=== PATIENT | female | born 2000 | race Hispanic/Latino ===

== ENCOUNTER 2022-07-20 10:26 | Day surgery (SDC) | payer OTHER ==
[2022-07-18 14:52] VITALS: BMI 19.8
[2022-07-20] MEDS ORDERED: Lidocaine 1% PF 5 ML VIAL ONE (11:33)
[2022-07-20] MEDS ORDERED: PROPOFOL 60 ML ONE (11:42)
== END 2022-07-20 13:20 | disposition home or self-care (01) ==
LOC: CSHSDC 10:26
PROVIDERS: ATTEND Internal Medicine Gastroenterology
PROC: 0DBN8ZX Excision of Sigmoid Colon, Via Natural or Artificial Opening Endoscopic, Diagnostic (ICD-10-PCS; principal; 2022-07-20)
PROC: 0DBP8ZX Excision of Rectum, Via Natural or Artificial Opening Endoscopic, Diagnostic (ICD-10-PCS; principal; 2022-07-20)
DX: K51.311 Ulcerative (chronic) rectosigmoiditis with rectal bleeding (principal); K64.9 Unspecified hemorrhoids
CPT/HCPCS: 88305; J2704